=== PATIENT | female | born 2000 | race Asian ===

== ENCOUNTER 2021-10-13 12:23 | Inpatient (IN) | payer BC ==
[2021-10-13] VITALS (12 sets, daily range): BP systolic 125–154; BP diastolic 77–109
[~2021-10-13] VITALS: Ht 160 cm; Wt 66.5 kg
[~2021-10-13 12:23] MED LIST: LIDOCAINE/PF 2% 5 ML VIAL IM ONE; PROPOFOL 1% 20 ML VIAL IVP ONE
[2021-10-13] MEDS ORDERED: SODIUM CHLORIDE 0.9% 1,000 ML IV ONE (13:00)
[2021-10-13 13:15] LABS: BASOPHILS % (AUTO) 0.3 % (0.0-2.0); EOSINOPHILS % (AUTO) 1.2 % (1.0-6.0); HEMATOCRIT 34.6 % (36-46); HEMOGLOBIN 10.9 g/dL (12.0-16.0); LYMPHOCYTES # (AUTO) 1.9 K/uL (1.0-4.8); LYMPHOCYTES % (AUTO) 17.9 % (22.0-44.0); MEAN CORPUSCULAR HEMOGLOBIN 21.1 pg (26.0-34.0); MEAN CORPUSCULAR HGB CONC 31.5 G/dL (31.0-37.0); MEAN CORPUSCULAR VOLUME 67 fL (80-100); MONOCYTES # (AUTO) 0.7 K/uL (0.1-1.0); MONOCYTES % (AUTO) 6.5 % (2.0-9.0); NEUTROPHILS % (AUTO) 74.1 % (40.0-70.0); PLATELET COUNT (AUTO) 430 K/uL (150-450); RED BLOOD CELL COUNT(AUTO) 5.17 MIL/uL (4.00-5.20); RED CELL DISTRIBUTION WIDTH 14.1 % (11.5-14.5)
[2021-10-13] MEDS ORDERED: PANTOPRAZOLE SODIUM 80 MG in SODIUM CHLORIDE 0.9% 100 ML IV SCH (13:15)
[2021-10-13] MEDS ORDERED: PANTOPRAZOLE SODIUM 40 MG/VIAL IVP ONE (13:15)
[2021-10-13 13:26] LABS: COVID AG,FIA SOURCE NASAL SWAB
[2021-10-13 13:29] LABS: ANION GAP 10 mmol/L (8-16); CALCIUM, TOTAL 8.4 mg/dL (8.8-10.5); CARBON DIOXIDE 26 mmol/L (22-29); CHLORIDE 102 mmol/L (98-107); CREATININE 0.69 mg/dL (0.60-1.30); GLOMERULAR FILTR. RATE CALC > 60 mL/min (>60); GLUCOSE,RANDOM 103 mg/dL (70-110); POTASSIUM 4.1 mmol/L (3.5-5.1); SALICYLATE 0.9 mg/dL (2.8-20.0); SODIUM SERUM 138 mmol/L (136-145); UREA NITROGEN, BLOOD 23 mg/dL (7-18)
[2021-10-13 13:34] LABS: ALANINE AMINOTRANSFERASE 25 U/L (12-78); ALBUMIN 4.1 g/dL (3.4-5.0); ALKALINE PHOSPHATASE 71 U/L (46-116); ASPARTATE AMINOTRANSFERASE 14 U/L (15-37); BILIRUBIN,TOTAL 0.2 mg/dL (0.1-1.0); TOTAL PROTEIN, SERUM 8.3 g/dL (6.4-8.2)
[2021-10-13 13:36] LABS: ACETAMINOPHEN < 2 mcg/mL (10-30); PROTHROMBIN TIME 10.8 SEC (9.4-11.6)
[2021-10-13 13:37] LABS: LACTIC ACID 1.2 mmol/L (0.4-2.0)
[2021-10-13] MEDS ORDERED: SUCCINYLCHOLINE CHLORIDE 20 MG/ML 10 ML VIAL ONE (13:58)
[2021-10-13] MEDS ORDERED: TRANEXAMIC ACID 1,000 MG in DEXTROSE 5%-WATER 50 ML IV ONE (14:30)
[2021-10-13] MEDS ORDERED: ASPI-1192 PO (16:56)
[2021-10-13] MEDS ORDERED: DIPH25CA85 PO (16:56)
[2021-10-13 17:15] LABS: APPEARANCE,URINE CLEAR (CLEAR); BILIRUBIN,URINE NEGATIVE (NEGATIVE); GLUCOSE, URINE (UA) NEGATIVE (NEGATIVE); LEUKOCYTE ESTERASE ,URINE MODERATE (NEGATIVE); NITRATE,URINE NEGATIVE (NEGATIVE); OCCULT BLOOD,URINE NEGATIVE (NEGATIVE); PH,URINE 6.5 (5.0-8.0); PROTEIN,URINE NEGATIVE (NEGATIVE); SPECIFIC GRAVITIY, URINE 1.016 (1.003-1.030); UROBILINOGEN,URINE <=1.0 mg/dL (<=1.0)
[2021-10-13 17:32] LABS: RBC,URINE None Seen /HPF (0-2); SQUAMOUS EPITHELIAL CELL,UR Many /LPF (None Seen)
[2021-10-13 17:33] LABS: BACTERIA,URINE Few /HPF (None Seen)
[2021-10-13 20:07] LABS: HEMATOCRIT 37.9 % (36-46); HEMOGLOBIN 12.5 g/dL (12.0-16.0)
[2021-10-13] MEDS ORDERED: BISACODYL 10 MG RECTAL RECTAL SUPPOSITORY PR PRN (21:30)
[2021-10-13] MEDS ORDERED: MORPHINE SULFATE 2 MG/ML SYRINGE IVP PRN (21:30)
[2021-10-13] MEDS ORDERED: ALBUTEROL SULFATE 2.5 MG/0.5 ML NEB SOLUTION NEB PRN (21:30)
[2021-10-13] MEDS ORDERED: IPRATROPIUM BROMIDE 0.5 MG/2.5 ML NEB SOLUTION NEB PRN (21:30)
[2021-10-13] MEDS ORDERED: MAGNESIUM HYDROXIDE SUSPENSION 30 ML UDCUP PO PRN (21:30)
[2021-10-13] MEDS ORDERED: HYDROCODONE/ACETAMINOPHEN 5-325 MG TABLET PO PRN (21:30)
[2021-10-13] MEDS ORDERED: ONDANSETRON HCL 4 MG/2 ML VIAL IVP PRN (21:30)
[2021-10-13] MEDS ORDERED: ZOLPIDEM TARTRATE 5 MG TABLET PO PRN (21:30)
[2021-10-13] MEDS: PANTOPRAZOLE SODIUM 80 MG in SODIUM CHLORIDE 0.9% 100 ML IV SCH (22:15)
[2021-10-14] VITALS (7 sets, daily range): BP systolic 120–137; BP diastolic 74–90
[2021-10-14] MEDS: PANTOPRAZOLE SODIUM 80 MG in SODIUM CHLORIDE 0.9% 100 ML IV SCH ×2 (06:30→16:31)
[2021-10-14] MEDS: DOCUSATE SODIUM 100 MG CAPSULE PO SCH ×2 (09:00→21:37)
[2021-10-14] MEDS: ACETAMINOPHEN 325 MG TABLET PO PRN (15:48)
[2021-10-14] MEDS: BENZOCAINE/MENTHOL LOZENGE [6 LOZENGES/PACKET] PO PRN (21:37)
[2021-10-15] MEDS ORDERED: SODIUM CHLORIDE 0.9% 500 ML IV ONE (01:04)
[2021-10-15] MEDS: CefTRIAXone 1 GM/DEXTROSE 50 ML IV SCH ×2 (01:06→23:46)
[2021-10-15] MEDS: PANTOPRAZOLE SODIUM 80 MG in SODIUM CHLORIDE 0.9% 100 ML IV SCH (01:45)
[2021-10-15 03:40] VITALS: BP 133/70
[2021-10-15 08:00] VITALS: BP 120/75
[2021-10-15] MEDS: DOCUSATE SODIUM 100 MG CAPSULE PO SCH ×2 (08:01→21:28)
[2021-10-15] MEDS: BENZOCAINE/MENTHOL LOZENGE [6 LOZENGES/PACKET] PO PRN (10:02)
[2021-10-15 12:35] VITALS: BP 122/73
[2021-10-15 16:40] VITALS: BP 121/73
[2021-10-15 18:48] VITALS: BP 125/83
[2021-10-15 21:04] VITALS: BP 125/74
[2021-10-15] MEDS: PANTOPRAZOLE SODIUM 40 MG/VIAL IVP SCH (21:28)
[2021-10-15] MEDS: ACETAMINOPHEN 325 MG TABLET PO PRN (21:30)
[2021-10-16 04:02] VITALS: BP 121/70
[2021-10-16 08:36] VITALS: BP 116/71
[2021-10-16] MEDS ORDERED: PANT-31 PO (08:50)
[2021-10-16] MEDS: DOCUSATE SODIUM 100 MG CAPSULE PO SCH (09:05)
[2021-10-16] MEDS: PANTOPRAZOLE SODIUM 40 MG/VIAL IVP SCH (09:05)
== END 2021-10-16 11:30 | disposition home or self-care (01) | DRG 379 ==
LOC: EMS 12:23 → 5S 20:36 → 6S 10-15 18:43
PROVIDERS: ADMIT Hospitalist; ATTEND Hospitalist
PROC: 30233N1 Transfusion of Nonautologous Red Blood Cells into Peripheral Vein, Percutaneous Approach (ICD-10-PCS; 2021-10-13)
PROC: 0W3P8ZZ Control Bleeding in Gastrointestinal Tract, Via Natural or Artificial Opening Endoscopic (ICD-10-PCS; principal; 2021-10-13 14:45)
DX: K25.4 Chronic or unspecified gastric ulcer with hemorrhage (principal); G43.909 Migraine, unspecified, not intractable, without status migrainosus; Z20.822 Contact with and (suspected) exposure to COVID-19; Z72.0 Tobacco use
CPT/HCPCS: 71045; 80053; 81001; 83605; 84484; 85014; 85018; 85025; 85610; 85730; 86850; 86900; 86901; 86920; 86923; 87086; 93005; 99291; C9113; G0480; G0481; J0330; J0696; J2405; J2704; J3490; J7040; J7050; J7060; P9016; 36415-L1; 36415-TC